=== PATIENT | male | born 1990 | race American Indian/Alaskan Native ===

== ENCOUNTER 2019-08-30 20:32 | Emergency (ER) | payer BC, OTHER ==
[2019-08-30 20:46] VITALS: BP 153/86
[2019-08-30] MEDS ORDERED: TETANUS,DIPH,PERTUSS(ACELL) VACCINE 0.5 ML SYRINGE IM ONE (22:14)
[2019-08-30] MEDS ORDERED: HYDROcodone/ACETAMINOPHEN 5-325 MG TAB PO ONE (22:14)
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
== END 2019-08-30 23:45 | disposition home or self-care (01) ==
LOC: ED 20:32
DX: S16.1XXA Strain of muscle, fascia and tendon at neck level, initial encounter (principal); S60.410A Abrasion of right index finger, initial encounter; R07.89 Other chest pain; F12.10 Cannabis abuse, uncomplicated; Z79.899 Other long term (current) drug therapy; V49.49XA Driver injured in collision with other motor vehicles in traffic accident, initial encounter; Y93.89 Activity, other specified; Y92.410 Unspecified street and highway as the place of occurrence of the external cause; Y99.8 Other external cause status
CPT/HCPCS: 71046; 72040; 90471; 90715